=== PATIENT | male | born 1985 | race Caucasian/White ===

== ENCOUNTER 2017-06-16 08:47 | Emergency (ER) | payer BC, OTHER ==
[2017-06-16 09:07] VITALS: BP 149/99
[2017-06-16] MEDS ORDERED: methylPREDNISolone 125 MG* 2 ML VIAL IM ONE (09:23)
[2017-06-16] MEDS ORDERED: diPHENhydraMINE PO* 50 MG PO ONE (09:23)
[2017-06-16] MEDS ORDERED: Famotidine TAB* 20 MG PO ONE (09:23)
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
== END 2017-06-16 10:22 | disposition home or self-care (01) ==
LOC: UCEAST 08:47
DX: T63.461A Toxic effect of venom of wasps, accidental (unintentional), initial encounter (principal); F12.90 Cannabis use, unspecified, uncomplicated
CPT/HCPCS: 96372; 99212; A9270-GY; G0463; J2930